=== PATIENT | female | born 1960 | race African-American/Black ===

== ENCOUNTER 2020-05-25 10:37 | Emergency (ER) | payer OTHER ==
[2020-05-25 10:45] VITALS: BP 129/89; PULSE 103; TEMP 98.4; BMI 25.7
== END 2020-05-25 13:14 | disposition home or self-care (01) ==
LOC: JCOVINFU 10:37
DX: U07.1 COVID-19 (principal)
CPT/HCPCS: 71046-TC-FY; 87804; 99284-25; C9803; U0003

== ENCOUNTER 2021-11-02 10:05 | Emergency (ER) | payer OTHER ==
[2021-11-02 10:22] VITALS: BP 111/78; PULSE 75; RESP 18; TEMP 98.4; BMI 27.4
[2021-11-02] MEDS ORDERED: LIDOCAINE HCL 5% TOP OINTMENT 50 GM TUBE TP ONE (11:34)
[2021-11-02] MEDS ORDERED: LIDOCAINE 5% TOPICAL PATCH ONE (11:34)
== END 2021-11-02 11:37 | disposition home or self-care (01) ==
LOC: JERFT 10:05
DX: M25.561 Pain in right knee (principal)
CPT/HCPCS: 73562-TC-RT-FY; 99283-25

== ENCOUNTER 2022-04-02 10:18 | Emergency (ER) | payer OTHER ==
[2022-04-02 10:37] VITALS: BP 118/87; PULSE 82; RESP 18; TEMP 98.7; BMI 26.6
[2022-04-02] MEDS ORDERED: ALBUTEROL SO4 HFA INHALER IH ONE ×4 (11:14→11:47)
[2022-04-02] MEDS ORDERED: predniSONE 20 MG TABLET (UD) PO ONE (11:14)
[2022-04-02] MEDS ORDERED: ACETAMINOPHEN 500 MG TABLET (FP) PO ONE (11:15)
[2022-04-02] MEDS ORDERED: predniSONE 20 MG TABLET (UD) ONE (11:43)
[2022-04-02] MEDS ORDERED: ACETAMINOPHEN 325 MG TABLET (FP) ONE (11:43)
== END 2022-04-02 14:33 | disposition home or self-care (01) ==
LOC: JER 10:18
PROC: 3E0F7GC Introduction of Other Therapeutic Substance into Respiratory Tract, Via Natural or Artificial Opening (ICD-10-PCS; principal; 2022-04-02)
DX: R05.9 Cough, unspecified (principal); J06.9 Acute upper respiratory infection, unspecified
CPT/HCPCS: 0241U-QW; 94640; 99283-25